=== PATIENT | female | born 1975 | race Caucasian/White ===

== ENCOUNTER 2016-04-14 07:09 | Emergency (ER) | payer OTHER ==
[~2016-04-14] VITALS: Ht 162.6 cm; Wt 93.0 kg
[2016-04-14] MEDS ORDERED: IBUP-1114 PO (07:42)
[2016-04-14] MEDS ORDERED: TYLE325T5 PO (07:42)
[2016-04-14] MEDS ORDERED: ONDANSETRON 4 MG ORAL DISINTEGRATING TAB (S0181) PO ONE (08:15)
[2016-04-14] MEDS ORDERED: KETOROLAC 30 MG/ML VIAL (J1885) IM ONE (08:15)
[2016-04-14 09:26] VITALS: BP 123/79
[2016-04-14] MEDS ORDERED: KETO10TAB PO (09:35)
[2016-04-14] MEDS ORDERED: ZOFR4TAB3 PO (09:35)
[2016-04-14] MEDS ORDERED: FLON1SPR (09:35)
== END 2016-04-14 09:42 | disposition home or self-care (01) ==
LOC: M ED 08:00
DX: J32.9 Chronic sinusitis, unspecified (principal); R51 Headache; R11.0 Nausea; J45.909 Unspecified asthma, uncomplicated; E05.90 Thyrotoxicosis, unspecified without thyrotoxic crisis or storm; Z88.0 Allergy status to penicillin; Z88.6 Allergy status to analgesic agent; Z87.891 Personal history of nicotine dependence
CPT/HCPCS: 96372; 99281; J1885

== ENCOUNTER → 2016-06-30 | Outpatient (CLI) | payer OTHER ==
[~2016-06-30] MED LIST: FLON1SPR; IBUP-1114 PO; KETO10TAB PO; TYLE325T5 PO; ZOFR4TAB3 PO
--- NOTE | 2016-06-30 10:45 | REPMRS ---
Patient History The patient states she had a clinical breast exam in 06/2016. Family history of breast cancer in maternal grandmother at age 50 or over. Digital Woman Screen Mammo: June 30, 2016 - Exam #: [id number] Bilateral CC and MLO view(s) were taken. Technologist: Hetal David, Technologist Prior study comparison: June 11, 2015, digital woman screen mammo performed at [facility] to [facility]. March 27, 2014, bilateral digital mammo screening bilat, performed at [facility]. February 17, 2012, digital woman screen mammo performed at [facility]. FINDINGS: There are scattered fibroglandular densities. There has been no change in the appearance of the mammogram from the prior studies. There is a mild amount of scattered fibroglandular density which is fairly symmetric. There is no interval development of dominant mass, architectural distortion, or clustered microcalcification suggestive of malignancy. ASSESSMENT: BI-RADS/ACR category 1 mammogram. Negative. Recommendation Routine screening mammogram in 1 year (for women over age 40). This mammogram was interpreted with the aid of an FDA-approved computer-aided dectection system. Electronically Signed By: Marcial La MD 06/30/16 0950
== END ==
LOC: M WHC 08:01
PROVIDERS: ATTEND Nurse Practitioner Family
DX: Z12.31 Encounter for screening mammogram for malignant neoplasm of breast (principal)

== ENCOUNTER → 2016-06-30 | Outpatient (REF) | payer OTHER | LOC: M SFHCWAGY 12:59 | PROVIDERS: ATTEND Nurse Practitioner Family | DX: Z12.4 Encounter for screening for malignant neoplasm of cervix (principal); Z12.31 Encounter for screening mammogram for malignant neoplasm of breast ==

== ENCOUNTER → 2017-07-03 | Outpatient (CLI) | payer OTHER | LOC: M WHC 07:51 | DX: Z12.31 Encounter for screening mammogram for malignant neoplasm of breast (principal) | CPT/HCPCS: 77067 ==

== ENCOUNTER → 2018-07-05 | Outpatient (REF) | payer OTHER ==
[~2018-07-05] MED LIST changes: +ZOFR4TAB14 PO; -ZOFR4TAB3 PO
[2018-07-07 15:17] LABS: HPV HYBRID CAPTURE II Negative (Negative)
== END ==
LOC: M SFHCWAGY 08:28
PROVIDERS: ATTEND Nurse Practitioner Family
DX: Z12.4 Encounter for screening for malignant neoplasm of cervix (principal)

== ENCOUNTER → 2018-07-05 | Outpatient (CLI) | payer OTHER ==
--- NOTE | 2018-07-05 09:36 | REPMRS ---
Patient History The patient states she had a clinical breast exam in 06/2018. Family history of breast cancer at age 50 or over in maternal grandmother. 3D TOMOSYNTHESIS WAS PERFORMED. Digital Woman Screen Mammo: July 05, 2018 - Exam #: [id number] Bilateral CC and MLO view(s) were taken. Technologist: Lorrie Rush, Technologist Prior study comparison: July 03, 2017, digital woman screen mammo performed at [facility] to [facility]. June 30, 2016, digital woman screen mammo performed at [facility] to [facility]. FINDINGS: There are scattered fibroglandular densities. There has been no change in the appearance of the mammogram from the prior studies. There is a mild amount of residual fibroglandular tissue which is fairly symmetric. There is no interval development of dominant mass, architectural distortion, or clustered microcalcification suggestive of malignancy. Assessment: BI-RADS/ACR category 1 mammogram. Negative Mammogram. Recommendation Routine screening mammogram in 1 year (for women over age 40). This mammogram was interpreted with the aid of an FDA-approved computer-aided dectection system. Electronically Signed By: Sage Priest MD 07/05/18 0936
== END ==
LOC: M WHC 07:47
PROVIDERS: ATTEND Nurse Practitioner Family
DX: Z12.31 Encounter for screening mammogram for malignant neoplasm of breast (principal)

== ENCOUNTER 2018-09-17 04:09 | Inpatient (IN) | payer OTHER ==
[~2018-09-17] VITALS: Ht 152.4 cm; Wt 90.9 kg
[2018-09-17] VITALS (8 sets, daily range): BP systolic 105–120; BP diastolic 55–62
[2018-09-17 04:38] LABS: BASO # 0.1 10^3/uL (0.0-0.2); BASO % 0.4 % (0.0-1.0); EOS # 0.1 10^3/uL (0.0-0.50); EOS % 0.6 % (0.0-3.0); HEMATOCRIT 38.5 % (36.0-47.0); HEMOGLOBIN 13.4 g/dl (12.0-15.5); LYMPH # 1.8 10^3/uL (1.5-4.5); LYMPH % 12.1 % (24.0-44.0); MEAN CORPUSCULAR HEMOGLOBIN 32.3 pg (27.0-33.0); MEAN CORPUSCULAR HGB CONC 34.8 g/dl (32.0-36.5); MEAN CORPUSCULAR VOLUME 92.8 fl (80.0-96.0); MONO # 0.7 10^3/uL (0.0-0.8); MONO % 4.9 % (0.0-5.0); NEUTROPHILS # 12.2 10^3/uL (1.8-7.7); NEUTROPHILS % 81.5 % (36.0-66.0); PLATELET COUNT, AUTOMATED 268 10^3/uL (150-450); RED BLOOD COUNT 4.15 10^6/uL (4.00-5.40); WHITE BLOOD COUNT 14.9 10^3/uL (4.0-10.0)
[2018-09-17] MEDS ORDERED: MORPHINE 4 MG/ML 1ML VIAL/SYRINGE (J2270) IV PRN ×2 (05:00→11:30)
[2018-09-17] MEDS ORDERED: NS 1,000 ML IV ONE (05:00)
[2018-09-17] MEDS ORDERED: ONDANSETRON 4MG/2ML VIAL (J2405) IV ONE (05:00)
[2018-09-17 05:01] LABS: ALBUMIN 3.8 GM/DL (3.2-5.2); ALT/SGPT 19 U/L (12-78); BILIRUBIN,DIRECT 0.2 MG/DL (0.0-0.2); BILIRUBIN,TOTAL 0.7 MG/DL (0.2-1.0); BLOOD UREA NITROGEN 15 MG/DL (7-18); CALCIUM LEVEL 9.3 MG/DL (8.5-10.1); CARBON DIOXIDE LEVEL 23 MEQ/L (21-32); CHLORIDE LEVEL 110 MEQ/L (98-107); CREATININE FOR GFR 0.73 MG/DL (0.55-1.30); GLOMERULAR FILTRATION RATE > 60.0 (>58); GLUCOSE, FASTING 134 MG/DL (70-100); LIPASE 82 U/L (73-393); SODIUM LEVEL 141 MEQ/L (136-145); TOTAL PROTEIN 7.2 GM/DL (6.4-8.2)
[2018-09-17] MEDS ORDERED: ISOVUE-370 76% 100ML VIAL (Q9967) As Ordered ONE (05:05)
[2018-09-17] MEDS ORDERED: NS 2,730 ML in APPROPRIATE DILUENT 1 EA IV ONE (06:00)
[2018-09-17] MEDS ORDERED: LevoFLOXacin IV 750 MG in APPROPRIATE DILUENT 1 EA IV ONE (06:15)
[2018-09-17] MEDS ORDERED: metroNIDAZOLE 500 MG in APPROPRIATE DILUENT 1 EA IV ONE (06:15)
--- NOTE | 2018-09-17 06:34 | REPVR ---
EXAM: CT Abdomen and Pelvis With Contrast EXAM DATE/TIME: 09/17/2018 5:20 AM CLINICAL HISTORY: 43 years old, female; Abdominal pain; Localized; Lower; Additional info: Lower abd pain TECHNIQUE: Imaging protocol: Axial computed tomography images of the abdomen and pelvis with intravenous contrast. Coronal and sagittal reformatted images were created and reviewed. Radiation optimization: All CT scans at this facility use at least one of these dose optimization techniques: automated exposure control; mA and/or kV adjustment per patient size (includes targeted exams where dose is matched to clinical indication); or iterative reconstruction. Contrast material: ISOVUE 370;Contrast volume: 100 ml;Contrast route: IV; COMPARISON: No relevant prior studies available. FINDINGS: Liver: Normal. No mass. Gallbladder and bile ducts: There is a 2 cm stone in the gallbladder neck. There is no biliary ductal dilatation. Pancreas: Normal. No ductal dilation. Spleen: Normal. No splenomegaly. Adrenals: Normal. No mass. Kidneys and ureters: Normal. No hydronephrosis. Stomach and bowel: There is descending and sigmoid colon diverticulosis. There is diffuse colonic intramural infiltration with fat. There is sigmoid wall thickening with surrounding stranding and edema in addition to small foci of extraluminal air. Appendix: No evidence of appendicitis. Intraperitoneal space: See Reproductive Finding. Vasculature: Normal. No abdominal aortic aneurysm. Lymph nodes: Normal. No enlarged lymph nodes. Bladder: The urinary bladder is underdistended limiting its evaluation. Reproductive: The right ovary is prominent measuring 5.1 x 2.8 cm containing fat density lesion and calcification suggestive of dermoid lesion. There is a crenated left ovarian lesion with rim enhancement measuring 1.9 x 1.5 cm. There is small free pelvic fluid. Bones/joints: No acute fracture. No dislocation. Soft tissues: Unremarkable. IMPRESSION: 1. Descending and sigmoid colon diverticulosis with CT findings of perforated sigmoid diverticulitis. Scattered lower abdominal extraluminal foci of air. No walled off collection/abscess seen at this time. 2. Diffuse colonic mural infiltration with fat is nonspecific and could be seen with chronic inflammatory bowel process such as IBD. Correlate clinically. 3. 2 cm gallbladder neck stone with no CT evidence of cholecystitis. 4. Prominent right ovary containing a dermoid lesion. Further characterization with ultrasound is suggested. 5. 1.9 cm crenated left ovarian lesion with rim enhancement likely corpus luteal cyst or recently ovulated follicle. 6. Small free pelvic fluid could be physiologic or reactive to the above described diverticulitis. Electronically signed by: Alexy Ortiz On 09/17/2018 06:33:43 AM
[2018-09-17] MEDS ORDERED: KETOROLAC 60 MG/2 ML VIAL (J1885) As Ordered ONE ×2 (08:28→08:33)
[2018-09-17] MEDS ORDERED: fentaNYL 250 MCG/5 ML INJECTION (J3010) As Ordered ONE (08:29)
[2018-09-17] MEDS ORDERED: BUPIVACAINE/EPIN 0.25% 30 ML VIAL As Ordered ONE (08:29)
[2018-09-17] MEDS ORDERED: MIDAZOLAM INJ 2 MG/2 ML VIAL (J2250) As Ordered ONE (08:29)
[2018-09-17] MEDS ORDERED: ONDANSETRON 4MG/2ML VIAL (J2405) As Ordered ONE ×2 (08:33→11:24)
[2018-09-17] MEDS ORDERED: LIDOCAINE 2% INJ 100 MG/5 ML SDV (FOR ANES.) As Ordered ONE (08:33)
[2018-09-17] MEDS ORDERED: ROCURONIUM BROMIDE 50 MG/5 ML VIAL As Ordered ONE ×2 (08:33→10:07)
[2018-09-17] MEDS ORDERED: PROPOFOL 200 MG/20 ML VIAL As Ordered ONE (08:33)
[2018-09-17] MEDS ORDERED: SUGAMMADEX SODIUM 500 MG/5 ML VIAL (BRIDION) As Ordered ONE (08:33)
[2018-09-17] MEDS ORDERED: dexameTHASONE 4 MG/ML 1ML VIAL (J1100) As Ordered ONE (08:33)
[2018-09-17] MEDS ORDERED: PHENYLephrine HCL 500 MCG/5 ML (100MCG/ML) SYRINGE (J2370) As Ordered ONE (09:23)
[2018-09-17] MEDS ORDERED: fentaNYL 100 MCG/2 ML INJECTION (J3010) As Ordered ONE (11:24)
[2018-09-17] MEDS ORDERED: ONDANSETRON 4MG/2ML VIAL (J2405) IV PRN ×2 (11:30→11:45)
[2018-09-17] MEDS ORDERED: PERCOCET 5MG/325MG TAB PO PRN (11:45)
[2018-09-17] MEDS ORDERED: METOCLOPRAMIDE INJ 10MG/2ML VIAL (J2765) IV PRN (11:45)
[2018-09-17] MEDS: fentaNYL 100 MCG/2 ML INJECTION (J3010) IV PRN ×3 (11:45→12:16)
[2018-09-17] MEDS ORDERED: LR 1,000 ML IV SCH (11:45)
[2018-09-17] MEDS ORDERED: METOCLOPRAMIDE INJ 10MG/2ML VIAL (J2765) As Ordered ONE (11:58)
[2018-09-17] MEDS ORDERED: PERCOCET 5MG/325MG TAB As Ordered ONE (11:59)
--- NOTE | 2018-09-17 12:31 | HPE ---
DATE OF ADMISSION: 09/17/2018 CHIEF COMPLAINT: Is abdominal pain. HISTORY OF PRESENT ILLNESS: The patient is a 43-year-old female who presents with onset of abdominal pain that started yesterday. She thought it was gas pain, so she let is go throughout the day. Overnight, she got awakened from sleep by a sharp increase in pain, as well as chills and rigors. She came into the emergency room in the middle of the night, had CT done which showed perforated sigmoid diverticulitis. I was then called to evaluate. On examination, she was extremely tender. She was still having chills and significant pain. She denies having any symptoms like this in the past. No prior history of diverticulitis or diverticulosis. No prior colonoscopy. No family history of colon cancer or diseases. No recent travel, trauma, or changes in medications or diet. No other complaints. PAST MEDICAL HISTORY: A remote history of thyroid disease that she is unsure whether was it was hyper- or hypoactive, but she is not taking any medications for that currently. She used to also take medications for headaches that she does not have any more either. Currently, she is only taking Motrin as needed for minor aches and pains. No other known medical history. PAST SURGICAL HISTORY: Was tubal ligation. ALLERGIES: PENICILLIN. HOME MEDICATIONS: - Motrin SOCIAL HISTORY: Denies drug, alcohol, or tobacco abuse. FAMILY HISTORY: Noncontributory. REVIEW OF SYSTEMS: Pertinent positives and negatives as stated in the history of present illness (HPI). PHYSICAL EXAMINATION: Vital signs: Temperature 97.9, pulse 90, respirations 16, blood pressure 100/82, pulse oximetry 95% on room air. HEENT: Pupils equally round and react to light accommodation. Heart: S1, S2, regular rate and rhythm. Lungs: Clear to auscultation bilaterally. Abdomen: Soft. Tender to palpation diffusely. Localized guarding. No rigidity. Mild peritonitis. Extremities: No clubbing, cyanosis, or edema. LABORATORIES: White count 14.9, hemoglobin 13.4, platelets 268. Potassium 4, lactic acid 1.7. IMAGING: CT abdomen and pelvis showed descending sigmoid colon diverticulosis with findings of perforated diverticulitis. There is scattered lower abdominal extraluminal foci of air. No walled-off collections or abscesses. ASSESSMENT AND PLAN: The patient is a 43-year-old female with complicated diverticulitis with free air and stool throughout the abdomen. Recommendation is to proceed with exploratory laparoscopy, possible laparotomy. Risks and benefits of the procedure not limited to but including bleeding, infection, hernia formation, damage to surrounding structures, need for further surgery was discussed in detail with the patient. Informed consent was obtained, and procedure was planned urgently. Postoperatively, she will be kept in the hospital for 3-5 days. When she is tolerating her ostomy, she will be discharged home and will followup with me in the office in a couple months for reversal.
--- NOTE | 2018-09-17 12:39 | RO ---
DATE OF PROCEDURE: 09/17/2018 PREOPERATIVE DIAGNOSIS: Perforated viscus. POSTOPERATIVE DIAGNOSIS: Perforated sigmoid diverticulitis. PROCEDURE: Laparoscopic sigmoid resection with creation of colostomy. SURGEON: Dr. Sage Joe HEALTH AND WELLNESS DIRECTOR: Dr. Rafiq Chiang who assisted with retraction, mobilization of the colon, as well as creation of colostomy. ANESTHESIA: General. ESTIMATED BLOOD LOSS: 20. COMPLICATIONS: None. INDICATIONS FOR PROCEDURE: The patient is a 43-year-old female with perforated diverticulitis. Recommendation was to proceed with exploratory laparoscopy and possible laparotomy. Risks and benefits of the procedure not limited to, but including bleeding, infection, hernia formation, damage to surrounding structures, need for further surgery were discussed in detail with the patient and informed consent was obtained and the procedure was planned. DESCRIPTION OF PROCEDURE: The patient was brought back to operating room two after sufficient sedation. A Lemus catheter was placed and the abdomen sterilely prepped and draped. Next, a time out was done to confirm proper patient and proper procedure. Following that, a 5 mm incision made in the left upper quadrant. Veress needle was inserted. The abdomen was insufflated to 15 mmHg. Next, the Veress needle was removed. A 5 mm OptiVu port was used to gain access to the abdomen. Once the abdomen was entered, there was some stool identified in the left lower quadrant. Another 5 mm port was placed infraumbilically in the midline, another 5 mm port in the left midabdomen and a 12 mm port in the right lower abdomen. Next, the left lower quadrant was examined. The perforation was identified. I was able to go distal to the perforation at the rectosigmoid junction and then dissected through the mesentery posteriorly using the Enseal. I also dissected laterally along the peritoneal reflection all the way up to the descending colon. Once that was completed, I was able to completely dissect across the mesentery distally and then staple across with the echelon stapler with the green load. Once that was completed, I continued the dissection proximally using the Enseal all the way up to the level of the descending colon. I was then able to bring the colon out through up to the abdominal wall on the left where it appeared that it would be in a good location and not under any excessive tension. I then took out the left lower quadrant 5 mm port, extended the incision and created about a 3 cm incision through the fascia, enough to grab onto the specimen and bring it out for the ostomy. The colon was then held in place. We reinflated the abdomen to look back inside and make sure that it was not twisted and that the blood supply was intact and there were no other problems with any other bleeding. A 19-Persian Leander drain was then placed down into the pelvis and brought out through the right lower quadrant 12 mm port site. That was then sutured in place with a #3-0 silk suture. The abdomen was then desufflated. The ostomy was matured using interrupted #3-0 silk sutures in a Michelle fashion. The other port sites were closed with luis. The abdomen was cleaned and dried and 4 x 4's, tape and an ostomy appliance were applied, thus ending the procedure.
[2018-09-17] MEDS: LR 1,000 ML IV SCH ×2 (12:49→16:39)
[2018-09-17] MEDS: metroNIDAZOLE 500 MG in APPROPRIATE DILUENT 1 EA IV SCH ×2 (15:16→21:55)
[2018-09-17] MEDS: NORCO, ANEXSIA 5/325MG TABLET (HYDROcodone/ACETAMINOPHEN) PO PRN ×2 (17:07→21:55)
[2018-09-17] MEDS: SENOKOT S TAB PO SCH (21:55)
[2018-09-18 02:00] VITALS: BP 109/60
[2018-09-18] MEDS: LR 1,000 ML IV SCH ×2 (03:06→13:44)
[2018-09-18] MEDS: NORCO, ANEXSIA 5/325MG TABLET (HYDROcodone/ACETAMINOPHEN) PO PRN ×4 (03:06→22:01)
[2018-09-18] MEDS: metroNIDAZOLE 500 MG in APPROPRIATE DILUENT 1 EA IV SCH ×3 (05:04→22:01)
[2018-09-18 06:00] VITALS: BP 106/62
[2018-09-18 06:07] LABS: HEMATOCRIT 31.4 % (36.0-47.0); MEAN CORPUSCULAR HEMOGLOBIN 31.6 pg (27.0-33.0); MEAN CORPUSCULAR HGB CONC 34.1 g/dl (32.0-36.5); MEAN CORPUSCULAR VOLUME 92.6 fl (80.0-96.0); PLATELET COUNT, AUTOMATED 191 10^3/uL (150-450); RED BLOOD COUNT 3.39 10^6/uL (4.00-5.40); WHITE BLOOD COUNT 15.5 10^3/uL (4.0-10.0)
[2018-09-18] MEDS: LevoFLOXacin IV 750 MG in APPROPRIATE DILUENT 1 EA IV SCH (06:12)
[2018-09-18 06:24] LABS: HEMOGLOBIN 10.7 g/dl (12.0-15.5)
[2018-09-18 06:28] LABS: BLOOD UREA NITROGEN 9 MG/DL (7-18); GLUCOSE, FASTING 87 MG/DL (70-100)
[2018-09-18 06:29] LABS: CARBON DIOXIDE LEVEL 24 MEQ/L (21-32); CHLORIDE LEVEL 110 MEQ/L (98-107); GLOMERULAR FILTRATION RATE > 60.0 (>58); MAGNESIUM LEVEL 1.7 MG/DL (1.8-2.4); POTASSIUM SERUM 3.3 MEQ/L (3.5-5.1); SODIUM LEVEL 141 MEQ/L (136-145)
--- NOTE | 2018-09-18 09:10 | IPNPDOC ---
Text Note Date of Service The patient was seen on 09/18/18. NOTE No acute events overnight. Denies nausea, emesis, or fevers. She is tolerating clq diet and has air in the bag. VSSAF NAD abd - soft, non distended, TTP appropriate, dressing c/d/i, drain with cloudy fluid in it still labs - see below A) 43y/o female POD#1 s/p lap sigmoid resection with end colostomy for perforated diverticulitis P) ambulate clq diet ivf abx ostomy teaching Bandar Joe DO VS,Patrica, I+O VS, Patrica, I+O Laboratory Tests 09/18/18 05:37 Red Blood Count 3.39 L, Mean Corpuscular Volume 92.6, Mean Corpuscular Hemoglobin 31.6, Mean Corpuscular Hemoglobin Concent 34.1, Red Cell Distribution Width 12.3, Calcium Level 8.0 L Vital Signs Date Time Temp Pulse Resp B/P (MAP) Pulse Ox O2 Delivery O2 Flow Rate FiO2 09/18/18 06:00 97.2 57 16 106/62 (77) 100 2.0 09/17/18 04:15 Room Air I&O- Last 24 Hours up to 6 AM 09/18/18 06:00 Intake Total 6355 ml Output Total 1975 ml Balance 4380 ml JEANNIE JOE DO Sep 18, 2018 09:10
[2018-09-18] MEDS: PANTOPRAZOLE 40MG TAB (PROTONIX) PO SCH (09:23)
[2018-09-18] MEDS: POTASSIUM CHLORIDE 10 MEQ SR TABLET PO SCH ×2 (09:23→20:47)
[2018-09-18] MEDS: SENOKOT S TAB PO SCH ×2 (09:24→20:48)
[2018-09-18] MEDS: KETOROLAC 30 MG/ML VIAL (J1885) IV PRN ×2 (09:24→16:28)
[2018-09-18] MEDS: MAG SULF 1GM/100ML (MAG RUN) 1 GM in APPROPRIATE DILUENT 1 EA IV SCH ×2 (09:25→10:45)
[2018-09-18] MEDS: ENOXAPARIN 40 MG/0.4 ML SYRINGE (J1650) SC SCH (09:25)
[2018-09-18 14:00] VITALS: BP 116/64
[2018-09-18 18:00] VITALS: BP 160/70
[2018-09-19] MEDS: LR 1,000 ML IV SCH (04:06)
[2018-09-19] MEDS: metroNIDAZOLE 500 MG in APPROPRIATE DILUENT 1 EA IV SCH (05:08)
[2018-09-19 06:00] VITALS: BP 127/81
[2018-09-19 06:19] LABS: HEMATOCRIT 33.3 % (36.0-47.0); HEMOGLOBIN 11.1 g/dl (12.0-15.5); MEAN CORPUSCULAR HEMOGLOBIN 32.2 pg (27.0-33.0); MEAN CORPUSCULAR HGB CONC 33.3 g/dl (32.0-36.5); MEAN CORPUSCULAR VOLUME 96.5 fl (80.0-96.0); PLATELET COUNT, AUTOMATED 192 10^3/uL (150-450); RED BLOOD COUNT 3.45 10^6/uL (4.00-5.40); WHITE BLOOD COUNT 8.6 10^3/uL (4.0-10.0)
[2018-09-19 06:40] LABS: BLOOD UREA NITROGEN 7 MG/DL (7-18); CALCIUM LEVEL 8.4 MG/DL (8.5-10.1); CARBON DIOXIDE LEVEL 26 MEQ/L (21-32); CHLORIDE LEVEL 112 MEQ/L (98-107); CREATININE FOR GFR 0.62 MG/DL (0.55-1.30); GLOMERULAR FILTRATION RATE > 60.0 (>58); GLUCOSE, FASTING 87 MG/DL (70-100); MAGNESIUM LEVEL 2.1 MG/DL (1.8-2.4); SODIUM LEVEL 142 MEQ/L (136-145)
[2018-09-19] MEDS: NORCO, ANEXSIA 5/325MG TABLET (HYDROcodone/ACETAMINOPHEN) PO PRN ×2 (06:46→14:33)
[2018-09-19] MEDS: LevoFLOXacin IV 750 MG in APPROPRIATE DILUENT 1 EA IV SCH (06:47)
[2018-09-19] MEDS: SENOKOT S TAB PO SCH ×2 (08:15→23:56)
[2018-09-19] MEDS: POTASSIUM CHLORIDE 10 MEQ SR TABLET PO SCH ×2 (08:15→23:56)
[2018-09-19] MEDS: PANTOPRAZOLE 40MG TAB (PROTONIX) PO SCH (08:15)
[2018-09-19] MEDS: ENOXAPARIN 40 MG/0.4 ML SYRINGE (J1650) SC SCH (08:16)
[2018-09-19 10:00] VITALS: BP 120/65
[2018-09-19] MEDS: ACETAMINOPHEN TAB 650MG DOSE (2X325MG) PO PRN ×3 (11:09→20:25)
--- NOTE | 2018-09-19 13:00 | IPNPDOC ---
Text Note Date of Service The patient was seen on 09/19/18. NOTE No acute events overnight. Denies nausea, emesis, or fevers. She is tolerating reg diet and has air and stool in the bag. VSSAF NAD abd - soft, non distended, TTP appropriate, dressing c/d/i, drain with serosanguinous fluid in it still labs - see below A) 43y/o female POD#2 s/p lap sigmoid resection with end colostomy for perforated diverticulitis P) ambulate reg diet ivf abx ostomy teaching Bandar Joe DO VS,Patrica, I+O VS, Patrica, I+O Laboratory Tests 09/19/18 05:47 Red Blood Count 3.45 L, Mean Corpuscular Volume 96.5 H, Mean Corpuscular Hemoglobin 32.2, Mean Corpuscular Hemoglobin Concent 33.3, Red Cell Distribution Width 12.2, Calcium Level 8.4 L Vital Signs Date Time Temp Pulse Resp B/P (MAP) Pulse Ox O2 Delivery O2 Flow Rate FiO2 09/19/18 10:00 96.9 72 17 120/65 (83) 97 09/18/18 18:00 2.0 09/17/18 04:15 Room Air I&O- Last 24 Hours up to 6 AM 09/19/18 06:00 Intake Total 3225 ml Output Total 360 ml Balance 2865 ml JEANNIE JOE DO Sep 19, 2018 13:00
[2018-09-19 14:00] VITALS: BP 123/93
[2018-09-19 18:00] VITALS: BP 132/60
[2018-09-19 22:00] VITALS: BP 126/70
[2018-09-20 06:00] VITALS: BP 145/75
[2018-09-20 06:28] LABS: HEMOGLOBIN 11.7 g/dl (12.0-15.5); MEAN CORPUSCULAR HGB CONC 33.4 g/dl (32.0-36.5); MEAN CORPUSCULAR VOLUME 95.6 fl (80.0-96.0); PLATELET COUNT, AUTOMATED 225 10^3/uL (150-450); RED BLOOD COUNT 3.66 10^6/uL (4.00-5.40); WHITE BLOOD COUNT 8.7 10^3/uL (4.0-10.0)
[2018-09-20 06:54] LABS: BLOOD UREA NITROGEN 7 MG/DL (7-18); CALCIUM LEVEL 8.8 MG/DL (8.5-10.1); CARBON DIOXIDE LEVEL 27 MEQ/L (21-32); CHLORIDE LEVEL 109 MEQ/L (98-107); GLOMERULAR FILTRATION RATE > 60.0 (>58); GLUCOSE, FASTING 91 MG/DL (70-100); POTASSIUM SERUM 4.5 MEQ/L (3.5-5.1); SODIUM LEVEL 140 MEQ/L (136-145)
[2018-09-20] MEDS: ACETAMINOPHEN TAB 650MG DOSE (2X325MG) PO PRN ×2 (07:24→13:27)
[2018-09-20] MEDS: NORCO, ANEXSIA 5/325MG TABLET (HYDROcodone/ACETAMINOPHEN) PO PRN (08:48)
[2018-09-20] MEDS ORDERED: HYDR-4571 PO (08:48)
[2018-09-20] MEDS: ENOXAPARIN 40 MG/0.4 ML SYRINGE (J1650) SC SCH (08:49)
[2018-09-20] MEDS: SENOKOT S TAB PO SCH (08:49)
[2018-09-20] MEDS: POTASSIUM CHLORIDE 10 MEQ SR TABLET PO SCH (08:49)
[2018-09-20] MEDS: PANTOPRAZOLE 40MG TAB (PROTONIX) PO SCH (08:49)
[2018-09-20 14:00] VITALS: BP 128/81
== END 2018-09-20 15:16 | disposition home health service (06) | DRG 221 ==
LOC: M ED 04:09 → M ED INP 07:40 → M MSPAV 12:39
PROVIDERS: ADMIT Surgery; ATTEND Surgery
PROC: 0DBN4ZZ Excision of Sigmoid Colon, Percutaneous Endoscopic Approach (ICD-10-PCS; 2018-09-17)
PROC: 0D1N4Z4 Bypass Sigmoid Colon to Cutaneous, Percutaneous Endoscopic Approach (ICD-10-PCS; principal; 2018-09-17 08:30)
DX: K57.20 Diverticulitis of large intestine with perforation and abscess without bleeding (principal); Z88.0 Allergy status to penicillin

== ENCOUNTER 2018-11-14 07:23 | Day surgery (SDC) | payer OTHER ==
[~2018-11-14] VITALS: Ht 162.6 cm; Wt 85.3 kg
[~2018-11-14 07:23] MED LIST changes: +ALEV220T22 PO; +HYDR-4571 PO; +IBUP200C25 PO; +NON-325T5 PO; +NS 1,000 ML IV ONE
[2018-11-14] MEDS ORDERED: LIDOCAINE 2% INJ 100 MG/5 ML SDV (FOR ANES.) As Ordered ONE (07:40)
[2018-11-14] MEDS ORDERED: PROPOFOL 200 MG/20 ML VIAL As Ordered ONE ×2 (07:40→08:46)
--- NOTE | 2018-11-14 09:02 | ROOR ---
Patient Name: May Kuldip Procedure Date: 11/14/2018 8:31 AM Date of : 1975 Age: 43 Room: [facility] Gender: Female Note Status: Finalized Procedure: Colonoscopy via Stoma with Endoscopy of Sandoval Pouch Indications: History of diverticulitis s/p diverting colostomy with Sandoval pouch Providers: Sage Joe DO Referring MD: 1. No Referring Physician 1. No Referring Physician, Admin., Sage Joe DO Requesting Provider: Medicines: Propofol per Anesthesia Complications: No immediate complications. Procedure: Pre-Anesthesia Assessment: - Prior to the procedure, a History and Physical was performed, and patient medications and allergies were reviewed. The patient is competent. The risks and benefits of the procedure and the sedation options and risks were discussed with the patient. All questions were answered and informed consent was obtained. Patient identification and proposed procedure were verified by the physician, the nurse, the anesthesiologist and the gate technician in the endoscopy suite. Mental Status Examination: alert and oriented. Airway Examination: normal oropharyngeal airway and neck mobility. Respiratory Examination: clear to auscultation. CV Examination: normal. Prophylactic Antibiotics: The patient does not require prophylactic antibiotics. Prior Anticoagulants: The patient has taken no previous anticoagulant or antiplatelet agents. ASA Grade Assessment: II - A patient with mild systemic disease. After reviewing the risks and benefits, the patient was deemed in satisfactory condition to undergo the procedure. The anesthesia plan was to use monitored anesthesia care (MAC). Immediately prior to administration of medications, the patient was re-assessed for adequacy to receive sedatives. The heart rate, respiratory rate, oxygen saturations, blood pressure, adequacy of pulmonary ventilation, and response to care were monitored throughout the procedure. The physical status of the patient was re-assessed after the procedure. The Colonoscope was introduced through the anus and advanced to the cecum, identified by appendiceal orifice and ileocecal valve. The procedure was performed without difficulty. The patient tolerated the procedure well. Findings: Internal hemorrhoids were found during retroflexion. The hemorrhoids were small and Grade II (internal hemorrhoids that prolapse but reduce spontaneously). Patient is status-post sigmoid colectomy with an end sigmoid colostomy. The exam was otherwise without abnormality. Impression: - Internal hemorrhoids. - The examination was otherwise normal. - No specimens collected. Recommendation: - Patient has a contact number available for emergencies. The signs and symptoms of potential delayed complications were discussed with the patient. Return to normal activities tomorrow. Written discharge instructions were provided to the patient. - Repeat post-surgical lower GI endoscopy in 5-10 years for screening purposes. - Return to my office at the next available appointment. Attending Participation: I personally performed the entire procedure. Sage Joe DO 11/14/2018 9:01:57 AM Electronically signed by Sage Joe DO Number of Addenda: 0 Note Initiated On: 11/14/2018 8:31 AM Estimated Blood Loss: Estimated blood loss: none.
[2018-11-14 09:20] VITALS: BP 150/69
== END 2018-11-14 09:32 | disposition home or self-care (01) ==
LOC: M OPP 07:23
PROVIDERS: ATTEND Surgery
DX: K57.32 Diverticulitis of large intestine without perforation or abscess without bleeding (principal); K64.1 Second degree hemorrhoids; Z93.3 Colostomy status; E03.9 Hypothyroidism, unspecified; F41.9 Anxiety disorder, unspecified; R06.83 Snoring; Z88.8 Allergy status to other drugs, medicaments and biological substances; Z88.0 Allergy status to penicillin; Z91.018 Allergy to other foods

== ENCOUNTER 2018-12-06 10:52 | Inpatient (IN) | payer OTHER ==
[~2018-12-06] VITALS: Ht 162.6 cm; Wt 84.4 kg
[~2018-12-06 10:52] MED LIST changes: +ERTAPENEM SODIUM 1 GM in NS MINI-BAG PLUS 50 ML IV ONE; +LR 1,000 ML IV ONE; -NS 1,000 ML IV ONE; +UNRESOLVED CLARIFICATION ENTRY XX SCH
[2018-12-06] MEDS ORDERED: VIAL MATE ADAPTER XX ONE (11:08)
[2018-12-06] MEDS ORDERED: ONDANSETRON 4MG/2ML VIAL (J2405) As Ordered ONE (12:19)
[2018-12-06] MEDS ORDERED: MIDAZOLAM INJ 2 MG/2 ML VIAL (J2250) As Ordered ONE (12:19)
[2018-12-06] MEDS ORDERED: SUGAMMADEX SODIUM 500 MG/5 ML VIAL (BRIDION) As Ordered ONE (12:19)
[2018-12-06] MEDS ORDERED: ROCURONIUM BROMIDE 50 MG/5 ML VIAL As Ordered ONE ×2 (12:19→15:11)
[2018-12-06] MEDS ORDERED: METOCLOPRAMIDE INJ 10MG/2ML VIAL (J2765) As Ordered ONE (12:19)
[2018-12-06] MEDS ORDERED: LIDOCAINE 2% INJ 100 MG/5 ML SDV (FOR ANES.) As Ordered ONE (12:19)
[2018-12-06] MEDS ORDERED: PROPOFOL 200 MG/20 ML VIAL As Ordered ONE (12:19)
[2018-12-06] MEDS ORDERED: dexameTHASONE 4 MG/ML 1ML VIAL (J1100) As Ordered ONE (12:19)
[2018-12-06] MEDS ORDERED: fentaNYL 250 MCG/5 ML INJECTION (J3010) As Ordered ONE (12:19)
[2018-12-06] MEDS ORDERED: BUPIVACAINE/EPIN 0.25% 30 ML VIAL As Ordered ONE (13:26)
[2018-12-06] MEDS ORDERED: KETOROLAC 60 MG/2 ML VIAL (J1885) As Ordered ONE (13:52)
[2018-12-06] MEDS ORDERED: ACETAMINOPHEN 1000MG 100ML IV BTL (OFIRMEV) (J0131 PER 10MG) As Ordered ONE (13:52)
[2018-12-06] MEDS ORDERED: GLYCOPYRROLATE INJ 0.2 MG/ML 2 ML VIAL As Ordered ONE (14:30)
[2018-12-06] MEDS ORDERED: fentaNYL 100 MCG/2 ML INJECTION (J3010) As Ordered ONE ×2 (14:41→15:08)
[2018-12-06] MEDS ORDERED: HYDROmorphone HCL 2 MG/ML 1ML VIAL (J1170) As Ordered ONE (16:34)
[2018-12-06] MEDS: LR 1,000 ML IV SCH (16:51)
[2018-12-06] MEDS ORDERED: KETOROLAC 30 MG/ML VIAL (J1885) As Ordered ONE (16:58)
[2018-12-06] MEDS ORDERED: HYDROMORPHONE HCL 0.5 MG/ 0.5 ML SYRINGE (J1170 PER 1) As Ordered ONE (16:59)
[2018-12-06] MEDS ORDERED: fentaNYL 100 MCG/2 ML INJECTION (J3010) IV PRN (17:00)
[2018-12-06] MEDS ORDERED: ONDANSETRON 4MG/2ML VIAL (J2405) IV PRN ×2 (17:00)
[2018-12-06] MEDS ORDERED: LR 1,000 ML IV SCH (17:00)
[2018-12-06] MEDS ORDERED: PERCOCET 5MG/325MG TAB PO PRN ×3 (17:00→22:30)
[2018-12-06] MEDS: HYDROMORPHONE HCL 0.5 MG/ 0.5 ML SYRINGE (J1170 PER 1) IV PRN ×2 (17:05→17:20)
[2018-12-06] MEDS ORDERED: KETOROLAC 30 MG/ML VIAL (J1885) IV PRN (17:15)
[2018-12-06 18:15] VITALS: BP 102/58
[2018-12-06 19:30] VITALS: BP 100/50
[2018-12-06] MEDS: SENOKOT S TAB PO SCH (20:25)
[2018-12-06 20:30] VITALS: BP 127/65
[2018-12-06 21:30] VITALS: BP 128/67
--- NOTE | 2018-12-06 22:14 | RO ---
DATE OF PROCEDURE: 12/06/2018 PREOPERATIVE DIAGNOSIS: Diverticulitis. POSTOPERATIVE DIAGNOSIS: Diverticulitis. PROCEDURE: Robotic-assisted colostomy reversal. SURGEON: Dr. Sage Joe SITE AUDITOR: Dr. Morgan who assisted with mobilization and anastomosis. ANESTHESIA: General. ESTIMATED BLOOD LOSS: 20 mL. COMPLICATIONS: None. INDICATIONS FOR PROCEDURE: The patient is a 43-year-old female, status post Sandoval's procedure about 3 months ago for perforated diverticulitis. She is now here for colostomy reversal. Risks and benefits of procedure not limited to but including bleeding, infection, hernia formation, damage to surrounding structures, anastomotic leak, and need for further surgery were discussed in detail with the patient. Informed consent was obtained and procedure was planned. DESCRIPTION OF PROCEDURE: The patient was brought back to operating room seven. After sufficient sedation, the abdomen was sterilely prepped and draped. Next, a time-out was done to confirm proper patient, proper procedure. Following that, an 8 mm incision made in left upper quadrant, Veress needle inserted and the abdomen was insufflated to 15 mmHg. Next, the Veress needle was removed and an Optiview port was used to gain access to the abdomen. Once the abdomen was entered, two more 8 mm ports were placed in the right side of the abdomen. The rectal stump was identified. Some adhesions lateral to the abdominal wall were carefully taken down to free it up. Once that was completed, adhesions were taken down circumferentially around the colostomy where it was entering through the fascia. Once that was completed, robot was undocked from the outside and an elliptical incision was made around the colostomy. Dissection was carried circumferentially around the subcutaneous tissues through the fascia. The sigmoid was then brought out through the incision. 28 EEA stapler anvil was taken through a small colotomy. The anvil was placed into the end of the colon and then stapled off using a GAMAL 100 blue load stapler. The anvil was brought out through the staple line and #2-0 Prolene suture, pursestring, was placed around it to help reinforce it. That was then placed back inside the abdomen. #1 PDS was used to close the fascia at that site. The abdomen was then reinsufflated and the EEA stapler was brought in through the rectum. The rectal stump was too long to get the EEA stapler all way through. Therefore, the laparoscopic Enseal was used to dissect through the rectal mesentery and then an [place] green load stapler was used to resect another 5 cm off the rectal stump. Once that was completed the EEA stapler was able to reach, the EEA anastomosis was then created at the sigmoid. Once that was all done, the specimen was placed inside of a 10 mm EndoCatch bag and brought out through the 12 mm port site. Next, an #0 Vicryl suture on a James-Mack needle was used to close the fascia at the 12 mm port site, as well as a few more stitches at the colostomy site. The abdomen was then desufflated. Skin incisions were closed with luis. The abdomen cleaned and dried. Steri-Strips, 4x4, and tape were applied thus ending procedure.
[2018-12-06 22:30] VITALS: BP 122/66
[2018-12-06 23:30] VITALS: BP 109/60
[2018-12-07] VITALS (7 sets, daily range): BP systolic 90–121; BP diastolic 49–60
[2018-12-07] MEDS ORDERED: KETOROLAC 30 MG/ML VIAL (J1885) IV PRN
[2018-12-07] MEDS: LR 1,000 ML IV SCH ×3 (00:45→17:26)
[2018-12-07] MEDS ORDERED: NS 500 ML IV ONE (05:45)
[2018-12-07 06:10] LABS: HEMATOCRIT 35.5 % (36.0-47.0); HEMOGLOBIN 11.8 g/dl (12.0-15.5); MEAN CORPUSCULAR HEMOGLOBIN 31.3 pg (27.0-33.0); MEAN CORPUSCULAR HGB CONC 33.2 g/dl (32.0-36.5); MEAN CORPUSCULAR VOLUME 94.2 fl (80.0-96.0); PLATELET COUNT, AUTOMATED 273 10^3/uL (150-450); RED BLOOD COUNT 3.77 10^6/uL (4.00-5.40)
[2018-12-07 06:31] LABS: BLOOD UREA NITROGEN 10 MG/DL (7-18); CALCIUM LEVEL 8.7 MG/DL (8.5-10.1); CARBON DIOXIDE LEVEL 26 MEQ/L (21-32); CHLORIDE LEVEL 106 MEQ/L (98-107); GLOMERULAR FILTRATION RATE > 60.0 (>58); GLUCOSE, FASTING 83 MG/DL (70-100); POTASSIUM SERUM 4.1 MEQ/L (3.5-5.1); SODIUM LEVEL 139 MEQ/L (136-145)
[2018-12-07] MEDS: PANTOPRAZOLE 40MG TAB (PROTONIX) PO SCH (08:49)
[2018-12-07] MEDS: ENOXAPARIN 40 MG/0.4 ML SYRINGE (J1650) SC SCH (08:49)
[2018-12-07] MEDS: SENOKOT S TAB PO SCH ×2 (08:49→20:27)
--- NOTE | 2018-12-07 09:29 | IPNPDOC ---
Text Note Date of Service The patient was seen on 12/07/18. NOTE No acute events overnight. Pain is controlled, and she is able to walk around the room and urinate on her own. No problems with nausea, or emesis. VSSAF NAD abd - soft, TTP appropriate, dressings c/d/i labs - below wbc - 13.1 A) 43y/o female s/p RA colostomy reversal. P) flq diet ivf abx ambulate monitor for bowel movements Bandar Joe DO VS,Jefersone, I+O VS, Markbone, I+O Laboratory Tests 12/07/18 05:41 Vital Signs Date Time Temp Pulse Resp B/P (MAP) Pulse Ox O2 Delivery O2 Flow Rate FiO2 12/07/18 07:00 91/51 (64) 12/07/18 05:00 97.2 60 18 96 Room Air 12/06/18 17:15 2 I&O- Last 24 Hours up to 6 AM 12/07/18 05:59 Intake Total 2275 ml Output Total 550 ml Balance 1725 ml JEANNIE JOE DO Dec 07, 2018 09:29
[2018-12-07] MEDS: ACETAMINOPHEN TAB 650MG DOSE (2X325MG) PO PRN ×2 (13:31→18:43)
[2018-12-07] MEDS ORDERED: ERTAPENEM SODIUM 1 GM in NS MINI-BAG PLUS 50 ML IV SCH (14:00)
[2018-12-08] MEDS: LR 1,000 ML IV SCH ×2 (01:45→08:13)
[2018-12-08] MEDS: ACETAMINOPHEN TAB 650MG DOSE (2X325MG) PO PRN ×2 (01:46→11:14)
[2018-12-08 02:00] VITALS: BP 107/61
[2018-12-08 05:59] LABS: HEMATOCRIT 33.3 % (36.0-47.0); HEMOGLOBIN 11.1 g/dl (12.0-15.5); MEAN CORPUSCULAR HEMOGLOBIN 31.7 pg (27.0-33.0); MEAN CORPUSCULAR HGB CONC 33.3 g/dl (32.0-36.5); MEAN CORPUSCULAR VOLUME 95.1 fl (80.0-96.0); PLATELET COUNT, AUTOMATED 220 10^3/uL (150-450)
[2018-12-08 06:00] VITALS: BP 121/71
[2018-12-08 06:17] LABS: BLOOD UREA NITROGEN 7 MG/DL (7-18); CALCIUM LEVEL 8.4 MG/DL (8.5-10.1); CARBON DIOXIDE LEVEL 29 MEQ/L (21-32); CHLORIDE LEVEL 110 MEQ/L (98-107); CREATININE FOR GFR 0.52 MG/DL (0.55-1.30); GLOMERULAR FILTRATION RATE > 60.0 (>58); GLUCOSE, FASTING 77 MG/DL (70-100); POTASSIUM SERUM 3.8 MEQ/L (3.5-5.1); SODIUM LEVEL 142 MEQ/L (136-145)
[2018-12-08] MEDS: PANTOPRAZOLE 40MG TAB (PROTONIX) PO SCH (08:13)
[2018-12-08] MEDS: ENOXAPARIN 40 MG/0.4 ML SYRINGE (J1650) SC SCH (08:13)
[2018-12-08] MEDS: SENOKOT S TAB PO SCH (08:13)
[2018-12-08] MEDS ORDERED: PERCOCET PO (09:53)
[2018-12-08 14:00] VITALS: BP 124/72
[2018-12-08 18:00] VITALS: BP 111/70
--- NOTE | 2018-12-09 20:15 | DSES ---
DATE OF ADMISSION: 12/06/2018 DATE OF DISCHARGE: 12/08/2018 ADMISSION DIAGNOSIS: Diverticulitis with previous colostomy creation. DISCHARGE DIAGNOSIS: Diverticulitis with previous colostomy creation. HOSPITAL COURSE: The patient is a 43-year-old female who presented for elective colostomy reversal on 12/06/2018. She underwent a robotic colostomy reversal, everything went as planned. Postoperative day #1 she was ambulating, urinating well on her own. No nausea or vomiting and pain was controlled. She had been on clear liquids overnight and was tolerating those, so I advanced her to a full liquid diet. Postoperative day #2 she was continuing to do well, continuing to move around more, her pain was more controlled, her diet was advanced to a regular diet. By the evening of 12/08/2018, she was passing lots of gas as well as bowel movements and felt well enough to go home. She was discharged home in the evening, sent home with some pain medications, and she can shower, but no baths for 5 days and she will followup with me in the office in 2 weeks. All of her questions are answered and she will call me with any questions.
== END 2018-12-08 19:40 | disposition home or self-care (01) | DRG 221 ==
LOC: M OR 10:52 → EDSTATUS 12:30 → M MSPAV 18:15
PROVIDERS: ADMIT Surgery; ATTEND Surgery
PROC: 0DSN4ZZ Reposition Sigmoid Colon, Percutaneous Endoscopic Approach (ICD-10-PCS; 2018-12-06)
PROC: 8E0W4CZ Robotic Assisted Procedure of Trunk Region, Percutaneous Endoscopic Approach (ICD-10-PCS; 2018-12-06)
PROC: 0DBP4ZZ Excision of Rectum, Percutaneous Endoscopic Approach (ICD-10-PCS; principal; 2018-12-06 12:30)
DX: Z43.3 Encounter for attention to colostomy (principal); K57.32 Diverticulitis of large intestine without perforation or abscess without bleeding

== ENCOUNTER → 2019-07-10 | Outpatient (CLI) | payer OTHER ==
[~2019-07-10] MED LIST changes: -ERTAPENEM SODIUM 1 GM in NS MINI-BAG PLUS 50 ML IV ONE; -LR 1,000 ML IV ONE; +PERCOCET PO; -UNRESOLVED CLARIFICATION ENTRY XX SCH
--- NOTE | 2019-07-10 09:01 | REPMRS ---
Patient History The patient states she had a clinical breast exam in June 2019. Family history of breast cancer at age 50 or over in maternal grandmother. Digital Woman Screen Mammo: July 10, 2019 - Exam #: [id number] Bilateral CC and MLO view(s) were taken. Technologist: Vidhi May, Technologist Prior study comparison: July 05, 2018, bilateral digital woman screen mammo performed at [facility]. July 03, 2017, digital woman screen mammo performed at [facility]. June 30, 2016, digital woman screen mammo performed at [facility]. FINDINGS: The breast tissue is almost entirely fat. The Volpara volumetric breast density category is: A. There has been no change in the appearance of the mammogram from the prior studies. There is no interval development of dominant mass, architectural distortion, or grouped microcalcification typical of malignancy. 3-D tomosynthesis shows no additional findings. Assessment: BI-RADS/ACR category 1 mammogram. Negative Mammogram. Recommendation Routine screening mammogram of both breasts in 1 year (for women over age 40). This patient's Lifetime Breast Cancer RIsk is estimated at 13.3 %. This mammogram was interpreted with the aid of an FDA-approved computer-aided dectection system. Electronically Signed By: Marcial La MD 07/10/19 0901
== END ==
LOC: M WHC 07:58
PROVIDERS: ATTEND Nurse Practitioner Family
DX: Z12.31 Encounter for screening mammogram for malignant neoplasm of breast (principal)

== ENCOUNTER → 2019-08-07 | Outpatient (CLI) | payer OTHER ==
[2019-08-07 07:00] LABS: BASO # 0.1 10^3/uL (0.0-0.2); BASO % 0.6 % (0.0-1.0); EOS # 0.2 10^3/uL (0.0-0.5); HEMATOCRIT 39.3 % (36.0-47.0); HEMOGLOBIN 12.9 g/dl (12.0-15.5); LYMPH # 2.7 10^3/uL (1.5-5.0); LYMPH % 34.1 % (24.0-44.0); MEAN CORPUSCULAR HEMOGLOBIN 31.4 pg (27.0-33.0); MEAN CORPUSCULAR HGB CONC 32.8 g/dl (32.0-36.5); MEAN CORPUSCULAR VOLUME 95.6 fl (80.0-96.0); MONO # 0.7 10^3/uL (0.0-0.8); MONO % 8.1 % (0.0-5.0); NEUTROPHILS # 4.4 10^3/uL (1.5-8.5); NEUTROPHILS % 54.8 % (36.0-66.0); PLATELET COUNT, AUTOMATED 274 10^3/uL (150-450); RED BLOOD COUNT 4.11 10^6/uL (4.00-5.40)
[2019-08-07 07:39] LABS: ALBUMIN 3.7 GM/DL (3.2-5.2); ALT/SGPT 27 U/L (12-78); BILIRUBIN,TOTAL 0.8 MG/DL (0.2-1.0); BLOOD UREA NITROGEN 14 MG/DL (7-18); CALCIUM LEVEL 8.8 MG/DL (8.5-10.1); CARBON DIOXIDE LEVEL 27 MEQ/L (21-32); CHLORIDE LEVEL 110 MEQ/L (98-107); CHOLESTEROL LEVEL 199 MG/DL (<200); CREATININE FOR GFR 0.72 MG/DL (0.55-1.30); FREE T4 0.65 NG/DL (0.76-1.46); GLOMERULAR FILTRATION RATE > 60.0 (>58); GLUCOSE, FASTING 91 MG/DL (70-100); HDL CHOLESTEROL 50 MG/DL (>40); LDL CHOLESTEROL 129 MG/DL (<100); NON-HDL-C 149 MG/DL; POTASSIUM SERUM 4.6 MEQ/L (3.5-5.1); SODIUM LEVEL 142 MEQ/L (136-145); TRIGLYCERIDES LEVEL 98 MG/DL (<150)
== END ==
LOC: M LAB 05:56
PROVIDERS: ATTEND Nurse Practitioner Family
DX: E03.9 Hypothyroidism, unspecified (principal)

== ENCOUNTER → 2019-09-20 | Outpatient (CLI) | payer OTHER ==
[2019-11-04 09:59] LABS: FREE T4 0.85 NG/DL (0.76-1.46); THYROID STIMULATING HORMONE 11.6 uIU/ML (0.358-3.740)
== END ==
LOC: M LAB 05:55
PROVIDERS: ATTEND Nurse Practitioner Family
DX: E03.9 Hypothyroidism, unspecified (principal)

== ENCOUNTER → 2019-11-17 | Outpatient (CLI) | payer OTHER ==
[2019-11-17 10:28] LABS: FREE T4 0.87 NG/DL (0.76-1.46); THYROID STIMULATING HORMONE 5.19 uIU/ML (0.358-3.740)
== END ==
LOC: M LAB 08:11
PROVIDERS: ATTEND Nurse Practitioner Family
DX: E03.9 Hypothyroidism, unspecified (principal)

== ENCOUNTER → 2020-01-04 | Outpatient (CLI) | payer OTHER ==
[2020-01-04 10:02] LABS: FREE T4 1.28 NG/DL (0.76-1.46); THYROID STIMULATING HORMONE 0.405 uIU/ML (0.358-3.740)
== END ==
LOC: M LAB 08:22
PROVIDERS: ATTEND Nurse Practitioner Family
DX: E03.9 Hypothyroidism, unspecified (principal)

== ENCOUNTER → 2020-07-14 | Outpatient (CLI) | payer OTHER ==
[~2020-07-14] MED LIST changes: +ACET32TAB PO; -NON-325T5 PO
--- NOTE | 2020-07-14 09:59 | REPMRS ---
Patient History The patient states she had a clinical breast exam in July 2020. Family history of breast cancer at age 50 or over in maternal grandmother. No breast complaints today Patient signed the MRS sheet 1st covid vaccine 05/22/20-left arm-Moderna 2nd covid vaccine 06/19/20-left arm Priors on PACS Patient Identification Verified Patient denied Digital Woman Screen Mammo: July 14, 2020 - Exam #: [id number] Bilateral CC and MLO view(s) were taken. Technologist: Vidhi May, Technologist Prior study comparison: July 10, 2019, bilateral digital woman screen mammo performed at [facility]. July 05, 2018, bilateral digital woman screen mammo performed at [facility]. FINDINGS: There are scattered fibroglandular densities. Screening. Digital screening (2D) mammography was performed bilaterally in the CC and MLO projections. Additionally, breast tomosynthesis (3D mammography) was performed bilaterally in the CC and MLO projections. Todays exam was compared to the prior exams. By history, the patient has no complaints of a palpable breast abnormality or other significant breast complaints. The breasts are unchanged in size and shape. There are no sam-soft tissue densities or spiculated masses. There is no internal architectural distortion.Once again, stable benign appearing calcifications are seen. There are no suspicious sam-calcific clusters. Skin thickening or nipple retraction is not present. IMPRESSION: BI-RADS Category 2- Benign Findings. There is no evidence of malignant alteration of the breasts. Followup examination recommended in one year. The Volpara volumetric breast density category is B, there are scattered areas of fibroglandular density. This mammogram was [facility] with the assistance [facility] FDA approved computer aided detection system for mammography. The lifetime Tyrer-Cuzick score is 13.1 % Negative x-ray reports should not delay surgical consultation if a dominant or clinically suspicious mass is present. Not all breast cancers can be identified by mammography. Therefore, we recommend that you continue to perform regular breast self-examination and physical examination and then promptly contact your physician of any concerns or changes. Adenosis and dense breasts may obscure an underlying neoplasm. Assessment: BI-RADS/ACR category 2 mammogram. Benign Findings. Recommendation Routine screening mammogram of both breasts in 1 year. Electronically Signed By: Raymundo Ely DO 07/14/20 0946
== END ==
LOC: M WHC 08:08
PROVIDERS: ATTEND Advanced Practice Midwife
DX: Z12.31 Encounter for screening mammogram for malignant neoplasm of breast (principal)

== ENCOUNTER → 2020-08-11 | Outpatient (CLI) | payer OTHER ==
[2020-08-11 07:20] LABS: ALBUMIN 3.9 GM/DL (3.2-5.2); ALT/SGPT 43 U/L (12-78); BILIRUBIN,TOTAL 0.9 MG/DL (0.2-1.0); BLOOD UREA NITROGEN 15 MG/DL (7-18); CALCIUM LEVEL 8.7 MG/DL (8.5-10.1); CARBON DIOXIDE LEVEL 25 MEQ/L (21-32); CHLORIDE LEVEL 109 MEQ/L (98-107); CHOLESTEROL LEVEL 187 MG/DL (<200); CHOLESTEROL RISK RATIO 3.895 (<5); CREATININE FOR GFR 0.66 MG/DL (0.55-1.30); FREE T4 0.94 NG/DL (0.76-1.46); GLOMERULAR FILTRATION RATE > 60.0 (>58); GLUCOSE, FASTING 83 MG/DL (70-100); HDL CHOLESTEROL 48 MG/DL (>40); LDL CHOLESTEROL 112 MG/DL (<100); NON-HDL-C 139 MG/DL; POTASSIUM SERUM 4.7 MEQ/L (3.5-5.1); SODIUM LEVEL 141 MEQ/L (136-145); TRIGLYCERIDES LEVEL 133 MG/DL (<150)
== END ==
LOC: M LAB 06:05
PROVIDERS: ATTEND Nurse Practitioner Family
DX: E03.9 Hypothyroidism, unspecified (principal)

== ENCOUNTER → 2020-09-21 | Outpatient (CLI) | payer OTHER ==
[2020-09-21 08:00] LABS: FREE T4 0.92 NG/DL (0.76-1.46); THYROID STIMULATING HORMONE 5.63 uIU/ML (0.358-3.740)
== END ==
LOC: M LAB 06:58
PROVIDERS: ATTEND Nurse Practitioner Family
DX: E03.9 Hypothyroidism, unspecified (principal)

== ENCOUNTER 2021-05-15 20:14 | Emergency (ER) | payer OTHER ==
[~2021-05-15] VITALS: Ht 162.6 cm; Wt 104.5 kg
[2021-05-15 20:15] VITALS: BP 139/79
[2021-05-15] MEDS ORDERED: LEVO50TA5 PO (21:19)
[2021-05-15] MEDS ORDERED: PRED20TA PO (21:39)
[2021-05-15] MEDS ORDERED: BENZ200C70 PO (21:39)
[2021-05-15] MEDS ORDERED: ALBUTEROL 90 MCG/ACT 8GM HFA INHALER INH ONE (21:40)
[2021-05-15] MEDS ORDERED: predniSONE 20 MG TAB PO ONE (21:40)
[2021-05-15] MEDS ORDERED: BENZONATATE 100MG CAPSULE PO ONE (21:40)
== END 2021-05-15 22:04 | disposition home or self-care (01) ==
LOC: M ED 20:14
DX: J20.9 Acute bronchitis, unspecified (principal); E03.9 Hypothyroidism, unspecified; Z88.0 Allergy status to penicillin; Z88.6 Allergy status to analgesic agent; Z79.899 Other long term (current) drug therapy; Z79.890 Hormone replacement therapy
CPT/HCPCS: 94640; 99282; J7512

== ENCOUNTER → 2021-06-13 | Outpatient (CLI) | payer OTHER ==
[~2021-06-13] MED LIST changes: +BENZ200C70 PO; +LEVO50TA5 PO; +PRED20TA PO
[2021-06-13 09:56] LABS: BASO % 0.5 % (0.0-1.0); EOS # 0.2 10^3/uL (0.0-0.5); EOS % 2.5 % (0.0-3.0); HEMOGLOBIN 12.4 g/dl (12.0-15.5); LYMPH # 2.7 10^3/uL (1.5-5.0); LYMPH % 31.6 % (24.0-44.0); MEAN CORPUSCULAR HEMOGLOBIN 31.2 pg (27.0-33.0); MEAN CORPUSCULAR HGB CONC 33.5 g/dl (32.0-36.5); MONO # 0.7 10^3/uL (0.0-0.8); MONO % 8.1 % (2.0-8.0); NEUTROPHILS # 4.8 10^3/uL (1.5-8.5); NEUTROPHILS % 56.9 % (36.0-66.0); PLATELET COUNT, AUTOMATED 293 10^3/uL (150-450); RED BLOOD COUNT 3.98 10^6/uL (4.00-5.40); WHITE BLOOD COUNT 8.4 10^3/uL (4.0-10.0)
[2021-06-13 10:47] LABS: ALBUMIN 3.6 GM/DL (3.2-5.2); ALT/SGPT 32 U/L (12-78); BILIRUBIN,TOTAL 0.5 MG/DL (0.2-1.0); BLOOD UREA NITROGEN 14 MG/DL (7-18); CALCIUM LEVEL 8.7 MG/DL (8.5-10.1); CARBON DIOXIDE LEVEL 25 MEQ/L (21-32); CHLORIDE LEVEL 109 MEQ/L (98-107); CHOLESTEROL LEVEL 165 MG/DL (<200); CHOLESTEROL RISK RATIO 3.586 (<5); CREATININE FOR GFR 0.57 MG/DL (0.55-1.30); FREE T4 0.96 NG/DL (0.76-1.46); GLOMERULAR FILTRATION RATE > 60.0 (>58); GLUCOSE, FASTING 99 MG/DL (70-100); HDL CHOLESTEROL 46 MG/DL (>40); LDL CHOLESTEROL 100 MG/DL (<100); NON-HDL-C 119 MG/DL; SODIUM LEVEL 140 MEQ/L (136-145); TOTAL PROTEIN 6.6 GM/DL (6.4-8.2); TRIGLYCERIDES LEVEL 94 MG/DL (<150)
== END ==
LOC: M PLALAB 08:46
PROVIDERS: ATTEND Nurse Practitioner Family
DX: Z00.00 Encounter for general adult medical examination without abnormal findings (principal); E03.9 Hypothyroidism, unspecified

== ENCOUNTER → 2021-08-24 | Outpatient (CLI) | payer OTHER | LOC: M RAD 06:13 | PROVIDERS: ATTEND Nurse Practitioner Family | DX: M25.572 Pain in left ankle and joints of left foot (principal) ==

== ENCOUNTER → 2021-09-17 | Outpatient (REF) | payer OTHER | LOC: M SFHCWAGY 12:59 | PROVIDERS: ATTEND Advanced Practice Midwife | DX: Z12.4 Encounter for screening for malignant neoplasm of cervix (principal) ==

== ENCOUNTER → 2021-09-17 | Outpatient (CLI) | payer OTHER | LOC: M WHC 08:10 | PROVIDERS: ATTEND Advanced Practice Midwife | DX: Z12.31 Encounter for screening mammogram for malignant neoplasm of breast (principal) ==

== ENCOUNTER 2022-01-17 21:36 | Emergency (ER) | payer OTHER ==
[~2022-01-17] VITALS: Ht 162.6 cm; Wt 107.3 kg
[2022-01-17] MEDS ORDERED: CETI-24 PO (21:45)
[2022-01-17] MEDS ORDERED: LEVO88TA3 PO (21:45)
[2022-01-17] MEDS ORDERED: ALBU8.5H INH (21:45)
[2022-01-17] MEDS ORDERED: MONT10TA97 PO (21:45)
[2022-01-17 22:49] LABS: RSV AMPLIFICATION NEGATIVE (NEGATIVE)
[2022-01-18 01:44] VITALS: BP 129/80
== END 2022-01-18 07:13 | disposition left against medical advice (07) ==
LOC: M ED 21:36
DX: Z53.21 Procedure and treatment not carried out due to patient leaving prior to being seen by health care provider (principal)

== ENCOUNTER → 2022-08-30 | Outpatient (CLI) | payer OTHER ==
[~2022-08-30] MED LIST changes: +ALBU8.5H INH; +CETI-24 PO; +LEVO88TA3 PO; +MONT10TA97 PO
[2022-08-30 09:08] LABS: ALBUMIN 3.8 G/DL (3.2-5.2); ALKALINE PHOSPHATASE 60 U/L (46-116); ALT/SGPT 30 U/L (7.0-40); AST/SGOT 13 U/L (<34); BILIRUBIN,TOTAL 0.8 MG/DL (0.3-1.2); BLOOD UREA NITROGEN 13 MG/DL (9-23); CALCIUM LEVEL 9.1 MG/DL (8.5-10.1); CARBON DIOXIDE LEVEL 27 MMOL/L (20-31); CHLORIDE LEVEL 106 MMOL/L (98-107); CHOLESTEROL LEVEL 173 MG/DL (<200); CHOLESTEROL RISK RATIO 4.21 (<5); CREATININE FOR GFR 0.59 MG/DL (0.55-1.30); FREE T4 1.07 NG/DL (0.89-1.76); GLOMERULAR FILTRATION RATE > 60.0 (>58); GLUCOSE, FASTING 87 MG/DL (60-100); POTASSIUM SERUM 4.5 MMOL/L (3.5-5.1); SODIUM LEVEL 139 MMOL/L (136-145); TOTAL PROTEIN 7.1 G/DL (5.7-8.2); TRIGLYCERIDES LEVEL 200 MG/DL (<150)
== END ==
LOC: M LAB 08:01
PROVIDERS: ATTEND Nurse Practitioner Family
DX: E03.9 Hypothyroidism, unspecified (principal)

== ENCOUNTER → 2022-09-19 | Outpatient (CLI) | payer OTHER | LOC: M WHC 07:31 | PROVIDERS: ATTEND Nurse Practitioner Family | DX: Z12.31 Encounter for screening mammogram for malignant neoplasm of breast (principal) ==

== ENCOUNTER → 2022-09-29 | Outpatient (REF) | payer OTHER | LOC: M SFHCWAGY 10:16 | PROVIDERS: ATTEND Nurse Practitioner Family | DX: Z12.4 Encounter for screening for malignant neoplasm of cervix (principal) ==

== ENCOUNTER → 2023-09-04 | Outpatient (CLI) | payer OTHER ==
[2023-09-04 09:08] LABS: ALBUMIN 3.7 G/DL (3.2-5.2); ALKALINE PHOSPHATASE 53 U/L (46-116); ALT/SGPT 28 U/L (7.0-40); AST/SGOT 9 U/L (<34); BILIRUBIN,TOTAL 1.1 MG/DL (0.3-1.2); BLOOD UREA NITROGEN 8 MG/DL (9-23); CALCIUM LEVEL 9.1 MG/DL (8.5-10.1); CARBON DIOXIDE LEVEL 30 MMOL/L (20-31); CHLORIDE LEVEL 108 MMOL/L (98-107); CHOLESTEROL LEVEL 173 MG/DL (<200); CHOLESTEROL RISK RATIO 4.08 (<5); FREE T4 1.04 NG/DL (0.89-1.76); GLOMERULAR FILTRATION RATE > 60.0 (>58); GLUCOSE, FASTING 97 MG/DL (60-100); HDL CHOLESTEROL 42.4 MG/DL (>40); LDL CHOLESTEROL 111.6 MG/DL (<100); NON-HDL-C 130.6 MG/DL; POTASSIUM SERUM 4.2 MMOL/L (3.5-5.1); SODIUM LEVEL 141 MMOL/L (136-145); THYROID STIMULATING HORMONE 8.562 uIU/ML (0.55-4.78); TOTAL PROTEIN 6.6 G/DL (5.7-8.2); TRIGLYCERIDES LEVEL 95 MG/DL (<150)
== END ==
LOC: M LAB 08:07
PROVIDERS: ATTEND Nurse Practitioner Family
DX: E03.9 Hypothyroidism, unspecified (principal)

== ENCOUNTER → 2023-09-26 | Outpatient (CLI) | payer OTHER | LOC: M WHC 07:36 | PROVIDERS: ATTEND Nurse Practitioner Family | DX: Z12.31 Encounter for screening mammogram for malignant neoplasm of breast (principal) ==

== ENCOUNTER → 2023-12-01 | Outpatient (CLI) | payer OTHER ==
[2023-12-01 09:43] LABS: BASO # 0.1 10^3/uL (0.0-0.2); BASO % 0.6 % (0.0-1.0); EOS # 0.3 10^3/uL (0.0-0.5); EOS % 3.2 % (0.0-3.0); HEMATOCRIT 36.6 % (36.0-47.0); HEMOGLOBIN 11.9 g/dl (12.0-15.5); LYMPH # 2.4 10^3/uL (1.5-5.0); LYMPH % 30.2 % (24.0-44.0); MEAN CORPUSCULAR HEMOGLOBIN 30.5 pg (27.0-33.0); MEAN CORPUSCULAR HGB CONC 32.5 g/dl (32.0-36.5); MEAN CORPUSCULAR VOLUME 93.8 fl (80.0-96.0); MONO # 0.6 10^3/uL (0.0-0.8); MONO % 7.7 % (2.0-8.0); NEUTROPHILS # 4.7 10^3/uL (1.5-8.5); NEUTROPHILS % 58.1 % (36.0-66.0); PLATELET COUNT, AUTOMATED 339 10^3/uL (150-450)
[2023-12-01 10:02] LABS: ERYTHROCYTE SEDIMENTATION RATE 10 mm/hr (0-30)
[2023-12-01 10:07] LABS: ALBUMIN 3.4 G/DL (3.2-5.2); ALKALINE PHOSPHATASE 59 U/L (46-116); ALT/SGPT 20 U/L (7.0-40); AST/SGOT < 8 U/L (<34); BILIRUBIN,TOTAL 0.7 MG/DL (0.3-1.2); BLOOD UREA NITROGEN 15 MG/DL (9-23); CALCIUM LEVEL 8.8 MG/DL (8.5-10.1); CARBON DIOXIDE LEVEL 25 MMOL/L (20-31); CHLORIDE LEVEL 110 MMOL/L (98-107); CREATININE FOR GFR 0.52 MG/DL (0.55-1.30); FREE T4 1.19 NG/DL (0.89-1.76); GLOMERULAR FILTRATION RATE > 60.0 (>51); GLUCOSE, FASTING 90 MG/DL (60-100); POTASSIUM SERUM 4.2 MMOL/L (3.5-5.1); SODIUM LEVEL 140 MMOL/L (136-145); TOTAL PROTEIN 6.8 G/DL (5.7-8.2)
[2023-12-01 10:08] LABS: THYROID STIMULATING HORMONE 2.717 uIU/ML (0.55-4.78)
[2023-12-04 14:22] LABS: ANA SCREEN, IFA NEGATIVE (NEGATIVE)
[2023-12-04 14:35] LABS: SSA SJOGRENS A <1.0 NEG AI (<1.0 NEG); SSB SJOGRENS B <1.0 NEG AI (<1.0 NEG)
[2023-12-05 14:52] LABS: LYME TOTAL ANTIBODY CIA <= 0.90 Index (<=0.90)
== END ==
LOC: M LAB 08:20
PROVIDERS: ATTEND Nurse Practitioner Family
DX: E03.9 Hypothyroidism, unspecified (principal); R21 Rash and other nonspecific skin eruption

== ENCOUNTER → 2024-09-09 | Outpatient (CLI) | payer OTHER ==
[2024-09-09 10:08] LABS: ALT/SGPT 25 U/L (7.0-40); AST/SGOT 16 U/L (<34); CALCIUM LEVEL 8.9 MG/DL (8.5-10.1); CARBON DIOXIDE LEVEL 29 MMOL/L (20-31); CHLORIDE LEVEL 104 MMOL/L (98-107); CHOLESTEROL LEVEL 159 MG/DL (<200); CHOLESTEROL RISK RATIO 3.63 (<5); CREATININE FOR GFR 0.64 MG/DL (0.55-1.30); GLOMERULAR FILTRATION RATE > 90.0 (>51); LDL CHOLESTEROL 93.8 MG/DL (<100); NON-HDL-C 115.2 MG/DL; POTASSIUM SERUM 4.4 MMOL/L (3.5-5.1); SODIUM LEVEL 143 MMOL/L (136-145); TRIGLYCERIDES LEVEL 107 MG/DL (<150)
[2024-09-09 10:11] LABS: FREE T4 1.32 NG/DL (0.89-1.76)
== END ==
LOC: M LAB 08:10
PROVIDERS: ATTEND Nurse Practitioner Family
DX: E03.9 Hypothyroidism, unspecified (principal)

== ENCOUNTER → 2024-09-26 | Outpatient (CLI) | payer OTHER | LOC: M WHC 07:53 | PROVIDERS: ATTEND Nurse Practitioner Family | DX: Z12.31 Encounter for screening mammogram for malignant neoplasm of breast (principal); R92.313 Mammographic fatty tissue density, bilateral breasts ==

== ENCOUNTER 2025-01-16 09:31 | Day surgery (SDC) | payer OTHER ==
[~2025-01-16] VITALS: Ht 162.6 cm; Wt 103.4 kg
[2025-01-16] MEDS: ACETAMINOPHEN 325 MG TAB PO ONE (10:15)
[2025-01-16] MEDS ORDERED: ACETAMINOPHEN 325 MG TAB As Ordered ONE (10:16)
[2025-01-16 11:07] VITALS: TEMP 98.1
[2025-01-16 11:27] VITALS: BP 136/60; O2SAT 97
== END 2025-01-16 11:33 | disposition home or self-care (01) ==
LOC: M OPP 09:31
PROVIDERS: ATTEND Surgery
DX: Z12.11 Encounter for screening for malignant neoplasm of colon (principal); K64.0 First degree hemorrhoids; J45.909 Unspecified asthma, uncomplicated; Z88.0 Allergy status to penicillin; Z88.6 Allergy status to analgesic agent; Z91.018 Allergy to other foods; Z79.899 Other long term (current) drug therapy